=== PATIENT | male | born 1970 | race American Indian/Alaskan Native ===

== ENCOUNTER 2017-03-26 10:39 | Day surgery (SDC) | payer BC ==
[2017-03-17 11:37] VITALS: BMI 38.0
[2017-03-26] MEDS ORDERED: ceFAZolin IV 2 gm in Dextrose 2 GM/50 ML BAG IVPB ONE (11:24)
[2017-03-26] MEDS ORDERED: ceFAZolin IV 1 gm in Dextrose 0 GM/0 ML BAG IVPB ONE (11:24)
[2017-03-26] MEDS: Bupivacaine HCl 0.25% PF (10 ml) Inj ONE ×2 (12:05→13:35)
[2017-03-26] MEDS ORDERED: Lactated Ringer's 1,000 ML IV ONE ×4 (12:06→15:20)
[2017-03-26] MEDS: Lidocaine 1%/Epinephrine 1:100000 30 ml vial IJ ONE ×2 (12:06→13:35)
[2017-03-26] MEDS ORDERED: Midazolam 2 MG/2 ML VIAL ONE (13:17)
[2017-03-26] MEDS ORDERED: Lidocaine Hydrochloride 5 ML INJ ONE ×2 (13:18→14:43)
[2017-03-26] MEDS ORDERED: Propofol 10 mg/ml Inj (20 ML) ONE ×2 (13:18→14:45)
[2017-03-26] MEDS ORDERED: Succinylcholine Chloride 20 mg/ml Syr (5 ml) IV ONE (13:18)
[2017-03-26] MEDS ORDERED: Rocuronium 10 mg/ml (5 ml) ONE (13:19)
[2017-03-26] MEDS ORDERED: ePHEDrine 50 mg/ml Inj ONE (13:52)
[2017-03-26] MEDS ORDERED: Neostigmine Methylsulfate 3mg/3ml Syringe IV ONE (14:24)
[2017-03-26] MEDS ORDERED: Oxycodone/Acetaminophen 5/325 mg Tab PO PRN (15:18)
--- NOTE | 2017-03-26 15:21 | PCM.SURG1 ---
Surgeon's Initial Post Op Note - Surgeon's Notes Surgeon: Dr. Hidalgo Safety And Occupational Health Manager: Dr. Storey PGY2, Lauren FERNANDEZA Type of Anesthesia: General Endo Pre-Operative Diagnosis: abdominal wall mass Operative Findings: see dictation Post-Operative Diagnosis: same Operation Performed: excision of abd wall lipoma, excision of redundant skin, flap closure Specimen/Specimens Removed: abd wall lipoma Estimated Blood Loss: EBL {In ML}: 20 Post-Op Condition: Good Date of Surgery/Procedure: 03/26/17 Time of Surgery/Procedure: 13:15
[2017-03-26 17:44] VITALS: O2SAT 98
[2017-03-26 18:45] VITALS: BP 114/75; PULSE 87; RESP 18; TEMP 97.8
--- NOTE | 2017-03-29 01:08 | OP ---
PROCEDURE DATE: 03/26/2017 PREOPERATIVE DIAGNOSES: 1. Large abdominal wall mass, possible lipoma of the left lower abdomen. 2. Morbid obesity. 3. Lower abdominal pain. POSTOPERATIVE DIAGNOSES: 1. Large abdominal wall mass, possible lipoma of the left lower abdomen. 2. Morbid obesity. 3. Lower abdominal pain. PROCEDURE DONE: 1. Excision of large abdominal wall mass, possible lipoma, approximately 20 x 15 cm size. 2. Excision of redundant skin flaps of approximately 12 x 4 cm size. 3. Complex flap closure of abdominal wall with excision of subcutaneous tissue. SURGEON: The procedure was done by Corey alvarez MD. TIGHTENER: PAU Hatch as well as Bri Storey, PGY-2 resident. ANESTHESIA: General endotracheal tube anesthesia. ESTIMATED BLOOD LOSS: Around 50 mL. DRAINS: None. PATHOLOGY: 1. Large abdominal wall mass was sent for the pathology. 2. Redundant skin. 3. Debrided subcutaneous fat and part of the lipoma was sent for the pathology. COMPLICATIONS: None. INTRAOPERATIVE FINDINGS: Patient had approximately 20 x 15 cm large left abdominal wall mass and the patient had surrounding thick subcutaneous tissue as well as large amount of redundant skin. DESCRIPTION OF PROCEDURE: On intraoperative step, this 46-year-old male with morbid obesity, was diagnosed with a large left lower quadrant abdominal wall mass and patient was consented for the excision as well as closure of the wound and patient was brought to the OR, placed supine on the operating table. After induction of the anesthesia, abdomen was prepped and draped in the usual sterile fashion and elliptical approximately 12 x 5 cm incision was made. After incising skin and subcutaneous tissue, the upper and lower flap was created, the dissection was carried down superiorly, inferiorly, medially, laterally to the anterior abdominal fascia and now the mass was completely excised and patient had a thickened subcutaneous tissue surrounding area that was also excised and due to the redundant skin superiorly as well as inferiorly, the inferior flap redundant skin was excised approximately 12 x 5 cm to properly close the upper and lower flaps and now afterwards, Excisional debridement of the lateral part on the wound was done due to the extensive subcutaneous thickened tissue and now the wound was irrigated and wound was closed in the complex flap layers. First, lower flap was sutured to the underlying fascia with multiple sutures. The superior flap was sutured to the underlying fascia with multiple sutures. The deep subcu with 2-0 Vicryl. Another layer of the deep subcu to the fascia with a 2-0 Vicryl and the superficial subcu with 2-0 Vicryl, skin with a 4-0 Monocryl and dry sterile dressing was applied. Patient tolerated the procedure well. Count of the instrument and gauze was correct. There was no apparent complication. The patient was extubated in the OR, sent to the postanesthesia care in stable condition. Corey Hidalgo MD MTDD
== END 2017-03-26 18:59 | disposition home or self-care (01) ==
LOC: C.SDS 10:39
PROVIDERS: ATTEND Surgery Surgical Critical Care
DX: D17.79 Benign lipomatous neoplasm of other sites (principal); E66.01 Morbid (severe) obesity due to excess calories
CPT/HCPCS: 11005; 22903; 88304; J0131; J0690; J1170; J1885; J2250; J2405; J2704; J2710; J3010; J7120